=== PATIENT | male | born 1950 | race Two or more races ===

== ENCOUNTER 2023-04-26 11:41 | Outpatient (CLI) | payer OTHER | END 2023-04-26 11:44 | disposition home or self-care (01) | LOC: RAD 11:41 | PROVIDERS: ATTEND Surgery Surgery of the Hand | DX: Z01.818 Encounter for other preprocedural examination (principal) ==

== ENCOUNTER 2023-05-09 05:50 | Day surgery (SDC) | payer OTHER | END 2023-05-09 10:55 | disposition home or self-care (01) | LOC: CIR.AMB 05:50 | PROVIDERS: ATTEND Surgery Surgery of the Hand | DX: D21.11 Benign neoplasm of connective and other soft tissue of right upper limb, including shoulder (principal); M72.8 Other fibroblastic disorders; Z88.6 Allergy status to analgesic agent; Z20.822 Contact with and (suspected) exposure to COVID-19 ==